=== PATIENT | male | born 1985 | race Caucasian/White ===

== ENCOUNTER 2017-08-30 13:53 | Emergency (ER) | payer BC ==
[~2017-08-30] VITALS: Ht 177.8 cm; Wt 126.0 kg
[~2017-08-30 13:53] MED LIST: NOHOMEMEDS
[2017-08-30] MEDS ORDERED: BACITRACIN28.4 GM TP (17:53)
[2017-08-30 18:13] VITALS: BP 149/96
== END 2017-08-30 18:15 | disposition home or self-care (01) ==
LOC: EME 13:53
DX: T22.211A Burn of second degree of right forearm, initial encounter (principal); X08.8XXA Exposure to other specified smoke, fire and flames, initial encounter; I10 Essential (primary) hypertension; F17.200 Nicotine dependence, unspecified, uncomplicated; Z88.0 Allergy status to penicillin
CPT/HCPCS: 99281; 99284